=== PATIENT | female | born 1970 | race Caucasian/White ===

== ENCOUNTER 2016-06-20 19:07 | Emergency (ER) | payer OTHER ==
[~2016-06-20] VITALS: Ht 172.7 cm; Wt 77.1 kg
[2016-06-20] MEDS ORDERED: IBUP600T26 PO ×2 (19:24→20:28)
[2016-06-20 20:35] VITALS: BP 128/73
--- NOTE | 2016-06-21 10:35 | REP ---
RIGHT ANKLE: Four views of the right ankle are performed and demonstrate no evidence of acute fracture or dislocation. There is mild lateral soft tissue swelling. The ankle mortise is anatomic. IMPRESSION: No acute fracture or dislocation. Signed by Juliano Mendes MD 06/21/2016 07:45 P
== END 2016-06-20 20:55 | disposition home or self-care (01) ==
LOC: M ED 20:06
DX: S93.401A Sprain of unspecified ligament of right ankle, initial encounter (principal); X50.9XXA Other and unspecified overexertion or strenuous movements or postures, initial encounter; Y92.410 Unspecified street and highway as the place of occurrence of the external cause; Y93.01 Activity, walking, marching and hiking; Y99.8 Other external cause status

== ENCOUNTER → 2018-10-25 | Outpatient (CLI) | payer OTHER ==
[~2018-10-25] MED LIST: IBUP-1022 PO
--- NOTE | 2018-10-26 03:52 | REP ---
Clinical: Pain. Technique: AP, lateral, bilateral oblique views of the left foot. Findings: No acute fracture or dislocation. Skeletal structures, joint spaces, and surrounding soft tissues are relatively normal for age. No overt arthritic changes are appreciated. Impression: Age-appropriate left foot radiographs. Electronically Signed by Ike Segovia MD 10/26/2018 03:43 A
== END ==
LOC: M WUC 17:04
PROVIDERS: ATTEND Physician Assistant
DX: M79.672 Pain in left foot (principal)

== ENCOUNTER → 2024-01-15 | Outpatient (CLI) | payer OTHER | LOC: M WUC 10:15 | PROVIDERS: ATTEND Nurse Practitioner Family | DX: M25.542 Pain in joints of left hand (principal) ==